=== PATIENT | female | born 1990 | race Caucasian/White ===

== ENCOUNTER → 2022-11-19 10:15 | Outpatient (CLI) | payer OTHER, SELFPAY ==
--- NOTE | ~2022-11-19 | US_ITS ---
Pelvic ultrasound. Clinical History: First trimester , evaluate for dates and viability Technique: Realtime transvaginal scanning of the pelvis was performed. Findings: The uterus is anteverted, and contains a twin intrauterine gestation. Fetus A demonstrates crown-rump length of 4 mm corresponds to an estimated gestational age of 6 weeks 0 days, with heart r ate of 118 bpm. Fetus B demonstrates crown-rump length of 9 mm, consistent with estimated gestational age of 6 weeks 6 days, with heart rate of 127 bpm. Small subchorionic hemorrhage noted. The right ovary measures 2.4 x 2.4 x 3.7 cm. Right ovarian corpus luteal cyst is seen. The left ovary is not visualized. No significant left ovarian or adnexal mass is seen. There is no evidence of free fluid in the cul de sac. Impression: Live twin intrauterine gestations, with estimated gestational age and heart rates as detailed above. Small subchorionic hemorrhage. Reviewed, dictated and finalized at location . BURSEMENT ANALYST Impression: Live twin intrauterine gestations, with estimated gestational age and heart rat es as detailed above. Small subchorionic hemorrhage. Impression: Live twin intrauterine gestations, with estimated gestational age and heart rat es as detailed above. Small subchorionic hemorrhage.
== END ==
PROVIDERS: Visit Provider Obstetrics & Gynecology
DX: Z36.87 Encounter for antenatal screening for uncertain dates (principal); O20.8 Other hemorrhage in early pregnancy; O30.001 Twin pregnancy, unspecified number of placenta and unspecified number of amniotic sacs, first trimester; Z3A.00 Weeks of gestation of pregnancy not specified
CPT/HCPCS: 76802; 76817